=== PATIENT | male | born 1965 | race Caucasian/White ===

== ENCOUNTER 2021-06-04 12:41 | Outpatient (CLI) | payer BC | END 2021-06-04 12:42 | disposition home or self-care (01) | LOC: TBSIIMAG 12:41 | PROVIDERS: ATTEND Neurological Surgery | DX: M47.12 Other spondylosis with myelopathy, cervical region (principal); R26.89 Other abnormalities of gait and mobility; M47.814 Spondylosis without myelopathy or radiculopathy, thoracic region; M48.02 Spinal stenosis, cervical region; M48.03 Spinal stenosis, cervicothoracic region; M50.11 Cervical disc disorder with radiculopathy, high cervical region; M47.817 Spondylosis without myelopathy or radiculopathy, lumbosacral region; Z98.890 Other specified postprocedural states; Z98.1 Arthrodesis status | CPT/HCPCS: 72100; 72141; 72146 ==

== ENCOUNTER 2021-08-10 14:07 | Outpatient (CLI) | payer BC ==
[2021-08-10 15:14] LABS: Hemoglobin 13.9 g/dL (13.5-17.5); Mean Corpuscular HGB CONC 33.1 g/dL (32.0-36.0); Mean Corpuscular Hemoglobin 29.3 pg (27.0-33.0); Mean Corpuscular Volume 88.4 fl (81.2-95.1); Mean Platelet Volume 8.7 fl (7.4-10.4); Platelet Count 251 10x3/uL (150-450); Red Blood Cell (RBC) Count 4.75 10x6/uL (4.32-5.72); White Blood Cell (WBC) Count 6.9 10x3/uL (3.5-10.5)
[2021-08-10 15:20] LABS: PTT 26.5 sec (22.0-33.0); Prothrombin Time 10.7 sec (9.5-12.1)
[2021-08-10 15:30] LABS: Anion Gap 13 mmol/L (10-20); BUN (Urea Nitrogen) 21 mg/dL (8.4-25.7); Calc. Creatinine Clearance 0 mL/min (70-130); Calcium 9.1 mg/dL (7.8-10.44); Carbon Dioxide 26 mmol/L (22-29); Chloride 107 mmol/L (98-107); Glucose 112 mg/dL (70-105); Potassium 4.6 mmol/L (3.5-5.1); Sodium 141 mmol/L (136-145)
[2021-08-11 00:42] LABS: SARS-CoV-2 PCR by NAA Not Detected (NotDetected)
== END 2021-08-10 14:08 | disposition home or self-care (01) ==
LOC: LABBT 14:07
PROVIDERS: ATTEND Neurological Surgery
DX: Z01.812 Encounter for preprocedural laboratory examination (principal); Z20.822 Contact with and (suspected) exposure to COVID-19
CPT/HCPCS: 80048; 85027; 85610; 85730; U0003; U0005

== ENCOUNTER 2021-08-13 06:02 | Day surgery (SDC) | payer BC ==
[2021-08-11 15:51] VITALS: BMI 27.8
[2021-08-13] MEDS ORDERED: Bupivacaine PF 0.5% 30 ML VIAL ONE (06:13)
[2021-08-13] MEDS ORDERED: Thrombin 5000 UNITS/5 ML VIAL ONE (06:13)
[2021-08-13] MEDS ORDERED: EPINEPHrine 1 MG/ML AMP ONE (06:13)
[2021-08-13] MEDS ORDERED: Neomycin-Polymyxin 1 ML AMP ONE (06:13)
[2021-08-13] MEDS ORDERED: HYDROmorphone 0.5 MG/0.5 ML SYRINGE ONE (06:17)
[2021-08-13] MEDS ORDERED: Fentanyl 100 MCG/2 ML VIAL ONE ×3 (06:17→09:28)
[2021-08-13] MEDS ORDERED: ceFAZolin 2 GM/DEX 5% 100 ML BAG ONE ×2 (06:43)
[2021-08-13] MEDS ORDERED: Midazolam HCl 2 mg/2 ml Vial ONE (06:54)
[2021-08-13] MEDS ORDERED: Dexamethasone 20 MG/5 ML VIAL ONE (06:56)
[2021-08-13] MEDS ORDERED: Glycopyrrolate 0.2 MG/ML 5 ML SYRINGE ONE (06:56)
[2021-08-13] MEDS ORDERED: Metoclopramide HCl 10 MG/2 ML VIAL ONE (06:56)
[2021-08-13] MEDS ORDERED: Rocuronium Bromide 10 MG/ML (10ML VIAL) ONE (06:56)
[2021-08-13] MEDS ORDERED: ePHEDrine 50 MG/ML VIAL ONE (06:56)
[2021-08-13] MEDS ORDERED: Vecuronium 10 MG VIAL ONE (06:56)
[2021-08-13] MEDS ORDERED: Ondansetron PF 4 MG/2 ML Vial ONE (06:56)
[2021-08-13] MEDS ORDERED: Lidocaine 1% PF 5 ML VIAL ONE (06:56)
[2021-08-13] MEDS ORDERED: PROPOFOL 200 MG/20 ML VIAL ONE (06:56)
[2021-08-13] MEDS ORDERED: Ondansetron HCl/PF 4 MG/2 ML Vial IVP PRN (08:47)
[2021-08-13] MEDS ORDERED: Promethazine HCl 25 MG/ML VIAL IVPB PRN (08:47)
[2021-08-13] MEDS ORDERED: HYDROmorphone 2 MG/ML VIAL SLOW IVP PRN (08:47)
[2021-08-13] MEDS ORDERED: Promethazine HCl 25 MG/ML VIAL IM PRN (08:47)
[2021-08-13] MEDS ORDERED: Tamsulosin HCl 0.4 MG CAP ONE (09:02)
== END 2021-08-13 11:30 | disposition home or self-care (01) ==
LOC: SDC 06:02
PROVIDERS: ATTEND Neurological Surgery
PROC: 01NB0ZZ Release Lumbar Nerve, Open Approach (ICD-10-PCS; principal; 2021-08-13)
DX: M48.061 Spinal stenosis, lumbar region without neurogenic claudication (principal); M51.16 Intervertebral disc disorders with radiculopathy, lumbar region; M51.17 Intervertebral disc disorders with radiculopathy, lumbosacral region; M47.12 Other spondylosis with myelopathy, cervical region; M50.020 Cervical disc disorder with myelopathy, mid-cervical region, unspecified level; E78.00 Pure hypercholesterolemia, unspecified; G89.29 Other chronic pain; M10.9 Gout, unspecified; E11.9 Type 2 diabetes mellitus without complications; G43.909 Migraine, unspecified, not intractable, without status migrainosus; I10 Essential (primary) hypertension; F17.200 Nicotine dependence, unspecified, uncomplicated; Z79.84 Long term (current) use of oral hypoglycemic drugs; Z79.899 Other long term (current) drug therapy; Z88.5 Allergy status to narcotic agent; Z88.8 Allergy status to other drugs, medicaments and biological substances; Z98.1 Arthrodesis status
CPT/HCPCS: 76000; J0171; J1100; J1170; J2250; J2405; J2704; J2765; J3010; J3370; J3490; S0020